=== PATIENT | female | born 1960 | race Caucasian/White ===

== ENCOUNTER 2020-03-28 14:04 | Emergency (ER) | payer OTHER ==
[~2020-03-28] VITALS: Ht 172.7 cm; Wt 129.3 kg
[~2020-03-28 14:04] MED LIST: ACET-8386 PO; CLIN150C1 PO; DOCU-299 PO; IBUP-974 PO; MIC5 PO
[2020-03-28 14:17] VITALS: BP 150/73
--- NOTE | 2020-03-28 14:35 | NUR ---
PT AMBULATED TO CHAIR A, STEADY GAIT.
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
--- NOTE | 2020-03-28 15:02 | NUR ---
DR. SANTIZO AT BEDSIDE.
[2020-03-28 15:10] VITALS: BP 150/73
== END 2020-03-28 15:10 | disposition home or self-care (01) ==
LOC: MED 14:04
DX: S06.0X9A Concussion with loss of consciousness of unspecified duration, initial encounter (principal); E11.9 Type 2 diabetes mellitus without complications; I10 Essential (primary) hypertension; Z88.0 Allergy status to penicillin; Z88.6 Allergy status to analgesic agent; Z88.2 Allergy status to sulfonamides; Z88.8 Allergy status to other drugs, medicaments and biological substances; Z79.899 Other long term (current) drug therapy; Z90.49 Acquired absence of other specified parts of digestive tract; Z85.3 Personal history of malignant neoplasm of breast; W18.30XA Fall on same level, unspecified, initial encounter; Y93.89 Activity, other specified; Y92.89 Other specified places as the place of occurrence of the external cause; Y99.8 Other external cause status
CPT/HCPCS: 99283